=== PATIENT | female | born 1990 | race American Indian/Alaskan Native ===

== ENCOUNTER 2018-06-07 09:37 | Day surgery (SDC) | payer BC ==
--- NOTE | 2018-06-07 09:29 | Discharge Summary ---
Short Stay Discharge Plan Activity: no restrictions Weight Bearing Status: Full Weight Bearing Diet: regular Wound: remove dressing (72hrs) Follow up with: TITO MATTHEWS JR, MD [Staff Physician] - 7 Days
--- NOTE | 2018-06-07 09:30 | Short Stay Summary ---
Short Stay Documentation Date of service: 06/07/18 - Allergies and Medications Current Medications: Allergies No Known Allergies Allergy (Verified 06/04/18 14:55) Home Medications Medication Instructions Recorded Confirmed Last Taken Type Loratadine/Pseudoephedrine 1 tab PO DAILY 06/04/18 06/04/18 Unknown History [Claritin-D 24Hr] Phentermine HCl 30 mg PO DAILY 06/04/18 06/04/18 Unknown History - Brief post op/procedure progress note Date of procedure: 06/07/18 Pre-op diagnosis: Macromastia Post-op diagnosis: same Procedure: John. Breast Reduction Anesthesia: GETA Findings: RT Breast LT Breast Surgeon: TITO MATTHEWS JR Estimated blood loss: 50-100ml Specimen disposition: to lab Condition: stable - Disposition Condition at discharge: Good Disposition: DC-01 TO HOME OR SELFCARE Short Stay Discharge Plan Follow up with: TITO MATTHEWS JR, MD [Staff Physician] - 7 Days
[2018-06-07] MEDS ORDERED: NACL BACTERIOSTATIC INFILTRATI ONE (10:37)
[2018-06-07] MEDS ORDERED: DILAUDID ONE ×2 (10:49→12:54)
[2018-06-07] MEDS ORDERED: DIPRIVAN 10 MG/ML IV ONE (10:49)
[2018-06-07] MEDS ORDERED: XYLOCAINE MPF 2% ONE (10:49)
[2018-06-07] MEDS ORDERED: ANCEF/STERILE WATER 2 GM/20 ML IV NR (11:00)
[2018-06-07 11:25] LABS: Basophils % (Auto) 0.5 % (0.0-1.8); Eosinophils # (Auto) 0.2 K/mm3 (0.0-0.4); Eosinophils % (Auto) 2.6 % (0.0-4.3); Hematocrit 36.5 % (30.3-42.9); Hemoglobin 11.9 gm/dl (10.1-14.3); Lymphocytes # (Auto) 2.4 K/mm3 (1.2-5.4); Lymphocytes % (Auto) 32.6 % (13.4-35.0); Mean Corpuscular HGB Conc 33 % (30-34); Mean Corpuscular Hemoglobin 27 pg (28-32); Mean Corpuscular Volume 81 fl (79-97); Monocytes # (Auto) 0.5 K/mm3 (0.0-0.8); Monocytes % (Auto) 6.4 % (0.0-7.3); Platelet Count 240 K/mm3 (140-440); Red Blood Count 4.51 M/mm3 (3.65-5.03)
--- NOTE | 2018-06-07 11:25 | Anesthesia Day of Surgery ---
Anesthesia Day of Surgery - Day of Surgery Patient Examined: Yes Patient H&P Reviewed: Yes Patient is NPO: Yes Beta Blockers: No Cardiac Clearance: No Pulmonary Clearance: No
[2018-06-07] MEDS ORDERED: TORADOL IV PRN (11:26)
--- NOTE | 2018-06-07 11:26 | Anesthesia Consultation ---
Anesthesia Consult and Med Hx Date of service: 06/07/18 - Airway Anesthetic Teeth Evaluation: Good ROM Head & Neck: Adequate Mallampati Class: Class III Intubation Access Assessment: Possibly Difficult - Pulmonary Exam CTA: Yes - Cardiac Exam Cardiac Exam: RRR - Pre-Operative Health Status ASA Pre-Surgery Classification: ASA3 Proposed Anesthetic Plan: General - Pulmonary Hx Smoking: Yes (QUIT 10 YEARS AGO) - Central Nervous System Hx Back Pain: Yes (obesity) Hx Psychiatric Problems: No - Other Systems Hx Alcohol Use: Yes (OCCA) Hx Substance Use: No
[2018-06-07] MEDS ORDERED: LACTATED RINGERS 1,000 ML IV SCH (12:00)
[2018-06-07] MEDS ORDERED: DECADRON ONE (12:26)
[2018-06-07] MEDS ORDERED: ZOFRAN ONE (12:26)
[2018-06-07] MEDS ORDERED: NACL 0.9% 1000 ML 1,000 ML ONE (12:26)
[2018-06-07] MEDS ORDERED: NACL 0.9% IR ONE (12:53)
[2018-06-07] MEDS: DILAUDID IV PRN ×2 (14:30→14:45)
--- NOTE | 2018-06-07 15:07 | Operative Report ---
PREOPERATIVE DIAGNOSIS: Macromastia. POSTOPERATIVE DIAGNOSIS: Macromastia. PROCEDURE: Bilateral reduction mammoplasty with nipple areolar complex amputation. SURGEON: Kimani Ford MD FIREFIGHTER TYPE ONE: Tres Wylie CSA FINDINGS: A 1020 gm removed from the right breast, 1040 gm removed from the left breast. DESCRIPTION OF PROCEDURE: The patient was brought to the operating room and placed in supine position. After administration of general anesthesia, bilateral breasts were prepped with Betadine solution, draped in the usual sterile manner. A #10 blade scalpel was used to make a circumareolar skin incision followed by de-epithelization of inferior dermal pedicle. Modified Garcia pattern skin markings were incised with scalpel, deepened through subcutaneous fat and breast tissue using the electrocautery. Skin flaps were raised in standard manner as was fashioning of an inferior central mound pedicle. Breast tissue was resected inclusive of nipple areolar complexes due to increased inframammary fold nipple distance placing an increased risk for nipple areolar necrosis. Hemostasis was controlled using electrocautery. Closure was performed over 10 mm DURGA drains using interrupted and running subcuticular 2-0 Monocryl sutures. Mastisol, Steri-Strips, and sterile dressings were applied. The patient tolerated the procedure well and returned to recovery room in stable condition. JOB# [id number] FTW/NTS
--- NOTE | 2018-06-07 15:27 | Post Anesthesia Evaluation ---
- Post Anesthesia Evaluation Patient Participated: Yes Airway Patent: Yes Stable Respiratory Function: Yes Nausea/Vomiting: No Temp > 96.8F: Yes Pain Manageable: Yes Adequeate Hydration: Yes Anesthesia Complications: No
[2018-06-07 17:35] VITALS: BP 111/68
== END 2018-06-07 16:40 | disposition home or self-care (01) ==
LOC: OR 09:37
PROVIDERS: ATTEND Plastic Surgery
DX: N60.12 Diffuse cystic mastopathy of left breast (principal); N62 Hypertrophy of breast; E66.9 Obesity, unspecified; Z68.41 Body mass index [BMI] 40.0-44.9, adult; K08.409 Partial loss of teeth, unspecified cause, unspecified class; Z72.89 Other problems related to lifestyle; Z87.891 Personal history of nicotine dependence
CPT/HCPCS: 19318; 36415; 81025; 85025; 88305; J0690; J1100; J1170; J2405; J2704; J7030; J7120